=== PATIENT | male | born 1990 | race Caucasian/White ===

== ENCOUNTER 2024-09-07 12:03 | Emergency (ER) | payer OTHER ==
[~2024-09-07] VITALS: Ht 180.3 cm; Wt 86.0 kg
[2024-09-07 12:28] VITALS: O2SAT 100
[2024-09-07 12:38] LABS: BASOPHILS % 0.3 % (0.0-2.0); EOSINOPHILS % 2.8 % (0.0-5.0); HEMATOCRIT. 48.3 % (42.0-52.0); HEMOGLOBIN. 15.9 g/dL (14.0-18.0); MEAN CORPUSCULAR HEMOGLOBIN 29.1 pg (28.0-32.0); MEAN CORPUSCULAR VOLUME 88.1 fL (80.0-94.0); MEAN PLATELET VOLUME 7.2 fl (7.4-10.4); MONOCYTES % 8.7 % (2.0-8.0); NEUTROPHILS % 69.2 % (40.0-76.0); PLATELET 210 x1000/uL (130-400); RED BLOOD CELL COUNT 5.47 mill/uL (4.7-6.1); RED CELL DISTRIBUTION WIDTH 13.5 % (11.6-14.6); WHITE BLOOD COUNT 5.1 x1000/uL (4.5-11.0)
[2024-09-07 12:45] LABS: CHLORIDE 108 mEq/L (98-107); POTASSIUM 3.7 mEq/L (3.5-5.1); SODIUM 140 mEq/L (136-145)
[2024-09-07 12:46] LABS: CALCIUM 9.5 mg/dL (8.7-10.4); CARBON DIOXIDE 27 mEq/L (21-32)
[2024-09-07 12:51] LABS: GLUCOSE 94 mg/dL (70-105); UREA NITROGEN BLOOD 15 mg/dL (9-23)
[2024-09-07 13:26] LABS: CLARITY URINE TURBID (CLEAR); COLOR URINE YELLOW (YELLOW); GLUCOSE URINE NEGATIVE (NEGATIVE); KETONES URINE NEGATIVE (NEGATIVE); LEUKOCYTE ESTERASE URINE NEGATIVE (NEGATIVE); NITRITE URINE NEGATIVE (NEGATIVE); OCCULT BLOOD URINE TRACE (NEGATIVE); PH URINE 7.5 (4.5-8.0); PROTEIN URINE NEGATIVE (NEGATIVE); SPECIFIC GRAVITY URINE 1.024 (1.005-1.030); UROBILINOGEN URINE 0.2 E.U./dL (0.2-1.0)
[2024-09-07 13:31] LABS: ALANINE AMINOTRANSFERASE 48 IU/L (10-49); ALBUMIN 4.2 g/dL (3.2-4.8); ASPARTATE AMINOTRANSFERASE 31 IU/L (<34); BILIRUBIN DIRECT 0.2 mg/dL (<=3.0); BILIRUBIN TOTAL 0.6 mg/dL (0.1-1.0); PROTEIN TOTAL 7.5 g/dL (6.0-8.3)
[2024-09-07 14:12] LABS: AMORPHOUS SEDIMENT URINE 1+ /lpf; SQUAMOUS EPITHELIAL CELL URINE NONE SEEN /lpf (RARE/1+); WBC URINE 0-2 /hpf (0-2)
[2024-09-07 14:13] LABS: BACTERIA URINE 2+; RBC URINE 0-2 /hpf (0-2)
[2024-09-07 14:32] VITALS: BP 111/63; PULSE 68; RESP 16; TEMP 36.78072; O2SAT 100
== END 2024-09-07 14:32 | disposition home or self-care (01) ==
LOC: ER 12:03
DX: R19.7 Diarrhea, unspecified (principal)
CPT/HCPCS: 36415; 80048; 80076; 81003; 85025; 99283

== ENCOUNTER 2024-09-21 15:24 | Emergency (ER) | payer OTHER ==
[~2024-09-21] VITALS: Ht 175.3 cm; Wt 180.0 kg
[2024-09-21 15:31] VITALS: O2SAT 97
[2024-09-21] MEDS ORDERED: ACET-2708 MT (18:52)
[2024-09-21 19:03] VITALS: BP 107/77; PULSE 72; RESP 16; TEMP 36.66960; O2SAT 97
[2024-09-21] MEDS: ACETAMINOPHEN 500MG TABLET PO ONE (19:03)
== END 2024-09-21 19:29 | disposition home or self-care (01) ==
LOC: ER 15:33
DX: B34.9 Viral infection, unspecified (principal); Z20.822 Contact with and (suspected) exposure to COVID-19
CPT/HCPCS: 87426; 87804; 99283